=== PATIENT | male | born 1960 | race Caucasian/White ===

== ENCOUNTER 2018-01-15 20:58 | Emergency (ER) | payer OTHER ==
[2018-01-15 21:22] VITALS: BP 114/75
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
== END 2018-01-15 22:04 | disposition short-term general hospital (02) ==
LOC: UCCORT 20:58
DX: M54.9 Dorsalgia, unspecified (principal); F17.210 Nicotine dependence, cigarettes, uncomplicated; Z88.3 Allergy status to other anti-infective agents
CPT/HCPCS: 99213; G0463